=== PATIENT | male | born 1960 | race Caucasian/White ===

== ENCOUNTER 2019-10-11 10:41 | Emergency (ER) | payer MEDICAID ==
[~2019-10-11] VITALS: Ht 190.5 cm; Wt 114.5 kg
[~2019-10-11 10:41] MED LIST: AMLO10TA PO; METH-603 PO; ONDA4TAB9 SL; OXYC-147 PO; PANT-47 PO; PHE25R PR; PROM12.512 PO
[2019-10-11] MEDS ORDERED: orphenadrine citrate 60mg/2ml inj. IM ONE (11:40)
[2019-10-11] MEDS ORDERED: ketorolac tromethamine 15mg/ml inj. IM ONE (11:40)
[2019-10-11] MEDS ORDERED: METH-360 PO (12:31)
[2019-10-11] MEDS ORDERED: NAPR-56 PO (12:31)
[2019-10-11 12:41] VITALS: BP 132/86
== END 2019-10-11 12:44 | disposition home or self-care (01) ==
LOC: ER 10:41
DX: M54.5 Low back pain (principal); I10 Essential (primary) hypertension; J44.9 Chronic obstructive pulmonary disease, unspecified; K21.9 Gastro-esophageal reflux disease without esophagitis; G89.29 Other chronic pain; F12.90 Cannabis use, unspecified, uncomplicated; Z86.19 Personal history of other infectious and parasitic diseases; Z98.890 Other specified postprocedural states; Z56.0 Unemployment, unspecified; Z88.0 Allergy status to penicillin; Z88.5 Allergy status to narcotic agent; Z88.7 Allergy status to serum and vaccine; Z79.899 Other long term (current) drug therapy
CPT/HCPCS: 72100; 96372; 99284; J1885; J2360

== ENCOUNTER 2019-10-17 16:41 | Emergency (ER) | payer MEDICAID, OTHER ==
[~2019-10-17] VITALS: Ht 190.5 cm; Wt 114.5 kg
[~2019-10-17 16:41] MED LIST changes: +METH-360 PO; +NAPR-56 PO
[2019-10-17 16:54] VITALS: BP 152/98
[2019-10-17] MEDS ORDERED: methylPREDNISolone sod succ 125mg/2ml vial IV ONE (17:10)
[2019-10-17] MEDS ORDERED: albuterol 2.5 MG/3 ML nebule NEB ONE (17:10)
[2019-10-17] MEDS ORDERED: normal saline 1000ML IV soln IVB ONE (17:10)
[2019-10-17] MEDS ORDERED: IPRA4AER (19:11)
[2019-10-17] MEDS ORDERED: ALBU8HFA PO (19:11)
== END 2019-10-17 19:32 | disposition home or self-care (01) ==
LOC: ER 16:41
DX: J44.1 Chronic obstructive pulmonary disease with (acute) exacerbation (principal); I10 Essential (primary) hypertension; K21.9 Gastro-esophageal reflux disease without esophagitis; G89.29 Other chronic pain; F12.90 Cannabis use, unspecified, uncomplicated; F17.200 Nicotine dependence, unspecified, uncomplicated; Z86.14 Personal history of Methicillin resistant Staphylococcus aureus infection; Z98.890 Other specified postprocedural states; Z56.0 Unemployment, unspecified; Z88.0 Allergy status to penicillin; Z88.7 Allergy status to serum and vaccine; Z79.899 Other long term (current) drug therapy
CPT/HCPCS: 71045; 94640; 94760; 99283

== ENCOUNTER 2024-04-17 13:57 | Emergency (ER) | payer MEDICAID ==
[~2024-04-17] VITALS: Ht 188 cm; Wt 116.5 kg
[~2024-04-17 13:57] MED LIST changes: -NAPR-56 PO
[2024-04-17] MEDS: haloperidol lactate 5mg/ml inj IM ONE (14:40)
[2024-04-17] MEDS: proCHLORperazine 10 MG/2 ml inj IV ONE (14:44)
[2024-04-17] MEDS: normal saline 1000ML IV soln IVB ONE (14:50)
[2024-04-17 14:51] LABS: BASOPHILS # (AUTO) 0.1 X10'3 (0-0.2); BASOPHILS % (AUTO) 0.7 % (0-1); EOSINOPHILS # (AUTO) 0.3 X10'3 (0-0.9); EOSINOPHILS % (AUTO) 3.1 % (0-6); HEMOGLOBIN 16.8 g/dl (14.0-17.9); LYMPHOCYTES # (AUTO) 1.4 X10'3 (1.1-4.8); LYMPHOCYTES % (AUTO) 13.3 % (21-51); MEAN CORPUSCULAR HEMOGLOBIN 30.1 PG (27.0-31.0); MEAN CORPUSCULAR HGB CONC 34.2 g/dL (33.0-36.5); MEAN PLATELET VOLUME 8.7 FL (7.4-10.4); MONOCYTES # (AUTO) 0.6 X10'3 (0-0.9); MONOCYTES % (AUTO) 5.8 % (2-12); NEUTROPHILS # (AUTO) 8.2 X10'3 (1.8-7.7); NEUTROPHILS % (AUTO) 77.1 % (42-75); PLATELET COUNT 292 X10'3 (140-440); RED BLOOD COUNT 5.57 X10'6 (4.70-6.10); RED CELL DISTRIBUTION WIDTH 14.7 % (11.5-14.5); WHITE BLOOD COUNT 10.7 X10'3 (4.5-11.0)
[2024-04-17 14:58] VITALS: TEMP 97.5
[2024-04-17 15:41] LABS: ALANINE AMINOTRANSFERASE 18 U/L (12-78); ALBUMIN 3.6 G/DL (3.4-5.0); ALBUMIN/GLOBULIN RATIO 0.9 (1.1-1.5); ALKALINE PHOSPHATASE 125 IU/L (46-116); ANION GAP 6 (8-16); ASPARTATE AMINO TRANSFERASE 26 U/L (10-37); BILIRUBIN,TOTAL 0.5 MG/DL (0.1-1.0); BLOOD UREA NITROGEN 9 MG/DL (7-18); BUN/CREATININE RATIO 10.8 (10.0-20.0); CALCIUM 8.8 MG/DL (8.5-10.1); CHLORIDE 105 MMOL/L (99-107); CREATININE 0.83 MG/DL (0.60-1.10); GLUCOSE 227 MG/DL (70-104); LIPASE 29 U/L (16-77); POTASSIUM 4.8 MMOL/L (3.5-5.1); SODIUM 140 MMOL/L (135-145); TOTAL CARBON DIOXIDE 29.1 MMOL/L (24-32); TOTAL PROTEIN 7.5 G/DL (6.4-8.2); eCRCL 107 ML/MIN; eGFR > 90 ML/MIN
[2024-04-17 15:50] LABS: BILIRUBIN,URINE NEGATIVE (Neg); CLARITY,URINE CLEAR (Clear); COLOR,URINE YELLOW (Yellow); GLUCOSE, URINE 250 mg/dl (Neg); KETONES,URINE 15 mg/dl (Neg); LEUKOCYTE ESTERASE ,URINE NEGATIVE (Neg); NITRITES, URINE NEGATIVE (Neg); OCCULT BLOOD,URINE TRACE-INTACT (Neg); PROTEIN,URINE 100 mg/dl (Neg); UROBILINOGEN,URINE 0.2 E.U/dL (0.2-1.0)
[2024-04-17] MEDS ORDERED: ONDA-243 PO (15:59)
[2024-04-17 16:00] LABS: UA COLLECTION TYPE URINAL
[2024-04-17 16:08] VITALS: BP 193/18; PULSE 85; RESP 16; O2SAT 97
[2024-04-17 16:14] LABS: BACTERIA,URINE FEW /HPF (Neg); COARSE GRANULAR CAST 0-3 /LPF (NEGATIVE); MUCUS STRANDS FEW /LPF (Neg); RBC,URINE 0-2 /HPF (0-2); SQUAMOUS EPITHELIAL CELL,UR FEW /LPF (FEW); WBC,URINE 0-4 /HPF (0-4)
== END 2024-04-17 16:11 | disposition home or self-care (01) ==
LOC: ER 13:57
DX: K52.9 Noninfective gastroenteritis and colitis, unspecified (principal); K21.9 Gastro-esophageal reflux disease without esophagitis; I10 Essential (primary) hypertension; J44.9 Chronic obstructive pulmonary disease, unspecified; Z88.0 Allergy status to penicillin; Z88.5 Allergy status to narcotic agent; Z88.7 Allergy status to serum and vaccine; Z88.8 Allergy status to other drugs, medicaments and biological substances
CPT/HCPCS: 36415; 80053; 81001; 82948; 83690; 85025; 96361; 96372; 96374; 99284; J0780; J1630; J7030